=== PATIENT | female | born 2000 | race Hispanic/Latino ===

== ENCOUNTER 2019-05-23 09:28 | Outpatient (CLI) | payer OTHER ==
--- NOTE | 2019-05-23 13:03 | ULT ---
OB ULTRASOUND: HISTORY: Size and dates. FINDINGS: Rela-time imaging of the pelvis was performed. This shows a single viable intrauterine in a breech presentation. The placenta is more anterior and fundal. No previa. The amniotic fluid is adequate for this stage of previous. The amniotic fluid index is 13.0. Review of anatomy shows normal intracranial anatomy. Face, kidneys, stomach, bladder, cord ins ertion, 3-vessel cord, and extremities are noted. No abnormality is seen. measurements are as follows: BPD 4.7 cm, 20 weeks 1 day Head circumference 17.4 cm, 20 weeks 0 days Abdominal circumference 16.2 cm, 21 weeks 1 day Femur length 3.4 cm, 20 weeks 4 days heart rate is 141 b.p.m. IMPRESSION: 1. Single viable intrauterine in a breech presentation, overall measurements corresponding to a gestational age of 20 weeks 3 days, estimated date of delivery 10/07/2019. 2. Placenta which is anterior in location without evidence of previa. POS: [facility]
== END 2019-05-23 09:29 | disposition home or self-care (01) ==
LOC: NAV ULT 09:28
PROVIDERS: ATTEND Family Medicine
DX: Z34.02 Encounter for supervision of normal first pregnancy, second trimester (principal); Z3A.20 20 weeks gestation of pregnancy
CPT/HCPCS: 76805